=== PATIENT | male | born 1975 | race Caucasian/White ===

== ENCOUNTER 2017-07-05 17:23 | Emergency (ER) | payer BC ==
[2017-07-05 21:56] LABS: APPEARANCE CLEAR (CLEAR); BILIRUBIN NEGATIVE (NEGATIVE); COLOR STRAW (YELLOW); GLUCOSE NEGATIVE (NEGATIVE); KETONE NEGATIVE (NEGATIVE); NITRITE NEGATIVE (NEGATIVE); PROTEIN NEGATIVE (NEGATIVE); SPECIFIC GRAVITY 1.005 (1.005-1.020); UROBILINOGEN NORMAL (NORMAL)
== END 2017-07-05 20:32 | disposition home or self-care (01) ==
LOC: D.ER 17:23
PROVIDERS: Physician Assistant Medical
DX: S39.012A Strain of muscle, fascia and tendon of lower back, initial encounter (principal); X50.0XXA Overexertion from strenuous movement or load, initial encounter; Y93.89 Activity, other specified; Y92.39 Other specified sports and athletic area as the place of occurrence of the external cause

== ENCOUNTER 2017-12-01 16:34 | Emergency (ER) | payer MEDICAID ==
[~2017-12-01] VITALS: Ht 172.7 cm; Wt 93.6 kg
[2017-12-01 16:59] VITALS: Ht 172.7 cm; Wt 93.6 kg
[2017-12-01] MEDS ORDERED: TENORMIN25 MG PO (17:02)
[2017-12-01] MEDS ORDERED: BACLOFEN10 MG PO (17:03)
[2017-12-01] MEDS ORDERED: DICLOFENAC SODI50 MG PO (17:03)
[2017-12-01] MEDS ORDERED: LISINOPRIL10 MG PO (17:03)
[2017-12-01] MEDS ORDERED: TESTOSTERON200 MG/ML IM (17:04)
[2017-12-01 17:49] LABS: BASOPHILS 0.6 % (0-2); EOSINOPHILS 5.4 % (0-7); HEMATOCRIT 47.2 % (42.0-54.0); HEMOGLOBIN 16.4 g/dL (13.5-17.5); IMMATURE GRANULOCYTES 0.5 % (0-5); LYMPHOCYTES 18.6 % (15-50); MCH 32.2 pg (26.0-34.0); MCHC 34.7 g/dL (31.0-37.0); MCV 92.7 fL (80.0-100.0); MEAN PLATELET VOLUME 11.7 fL (7.4-10.4); NEUTROPHILS 66.9 % (40-80); PLATELET COUNT 163 10x3/uL (130-400); RBC 5.09 10x6/uL (4.20-6.10); RDW 12.8 % (11.5-14.5); WBC 6.5 10x3/uL (4.8-10.8)
[2017-12-01 18:26] LABS: APPEARANCE CLEAR (CLEAR); BILIRUBIN NEGATIVE (NEGATIVE); COLOR YELLOW (YELLOW); GLUCOSE NEGATIVE (NEGATIVE); KETONE NEGATIVE (NEGATIVE); NITRITE NEGATIVE (NEGATIVE); PROTEIN NEGATIVE (NEGATIVE); SPECIFIC GRAVITY 1.005 (1.005-1.020); UROBILINOGEN NORMAL (NORMAL)
[2017-12-01 18:29] LABS: ALBUMIN 4.2 g/dL (3.4-5.0); ANION GAP 7.8 mmol/L (8-16); BILIRUBIN - TOTAL 0.63 mg/dL (0.2-1.3); CALCIUM 8.2 mg/dL (8.5-10.1); CARBON DIOXIDE 31.2 mmol/L (21.0-32.0); CREATININE - SERUM 1.5 mg/dL (0.6-1.3)
[2017-12-01] MEDS ORDERED: TORADOL10 MG PO (20:37)
[2017-12-01] MEDS ORDERED: ROBAXIN-750750 MG PO (20:37)
[2017-12-01 21:10] VITALS: BP 136/88
[2017-12-02] MEDS ORDERED: ULTRAM50 MG PO (11:02)
[2017-12-02] MEDS ORDERED: PREDNISONE20 MG PO (11:02)
== END 2017-12-01 21:10 | disposition home or self-care (01) ==
LOC: D.ER 16:34
PROVIDERS: Family Medicine
DX: S39.012A Strain of muscle, fascia and tendon of lower back, initial encounter (principal); X50.0XXA Overexertion from strenuous movement or load, initial encounter; Y93.89 Activity, other specified; Y92.019 Unspecified place in single-family (private) house as the place of occurrence of the external cause; S16.1XXA Strain of muscle, fascia and tendon at neck level, initial encounter; S29.012A Strain of muscle and tendon of back wall of thorax, initial encounter; I10 Essential (primary) hypertension

== ENCOUNTER 2017-12-02 10:08 | Emergency (ER) | payer MEDICAID ==
[~2017-12-02] VITALS: Ht 172.7 cm; Wt 93.6 kg
[~2017-12-02 10:08] MED LIST: BACLOFEN10 MG PO; DICLOFENAC SODI50 MG PO; LISINOPRIL10 MG PO; ROBAXIN-750750 MG PO; TENORMIN25 MG PO; TESTOSTERON200 MG/ML IM; TORADOL10 MG PO
[2017-12-02 10:11] VITALS: Ht 172.7 cm; Wt 93.6 kg
[2017-12-02] MEDS ORDERED: ULTRAM50 MG PO (11:02)
[2017-12-02] MEDS ORDERED: PREDNISONE20 MG PO (11:02)
[2017-12-02 11:21] VITALS: BP 134/88
== END 2017-12-02 11:15 | disposition home or self-care (01) ==
LOC: D.ER 10:08
DX: M54.5 Low back pain (principal); M62.838 Other muscle spasm; I10 Essential (primary) hypertension; M54.6 Pain in thoracic spine

== ENCOUNTER 2018-05-29 10:17 | Emergency (ER) | payer MEDICAID ==
[~2018-05-29] VITALS: Ht 172.7 cm; Wt 81.8 kg
[~2018-05-29 10:17] MED LIST changes: +PREDNISONE20 MG PO; +ULTRAM50 MG PO
[2018-05-29 10:21] VITALS: Ht 172.7 cm; Wt 81.8 kg
[2018-05-29 10:47] LABS: BASOPHILS 0.3 % (0-2); EOSINOPHILS 0.2 % (0-7); HEMOGLOBIN 17.6 g/dL (13.5-17.5); IMMATURE GRANULOCYTES 0.2 % (0-5); LYMPHOCYTES 24.8 % (15-50); MCH 32.2 pg (26.0-34.0); MCHC 36.7 g/dL (31.0-37.0); MCV 87.8 fL (80.0-100.0); MEAN PLATELET VOLUME 10.2 fL (7.4-10.4); MONOCYTES 5.1 % (2-11); NEUTROPHILS 69.4 % (40-80); RBC 5.47 10x6/uL (4.20-6.10); RDW 13.2 % (11.5-14.5); WBC 8.8 10x3/uL (4.8-10.8)
[2018-05-29 10:50] LABS: PLATELET COUNT 288 10x3/uL (130-400)
[2018-05-29 11:08] LABS: CALCIUM 8.8 mg/dL (8.5-10.1); CARBON DIOXIDE 20.6 mmol/L (21.0-32.0); CREATININE - SERUM 1.3 mg/dL (0.6-1.3); POTASSIUM - SERUM 3.6 mmol/L (3.5-5.1); THYROID STIMULATING HORMONE 1.08 uIU/mL (0.36-3.74)
[2018-05-29 11:13] LABS: UDS - AMPHET NEGATIVE QUAL (NEGATIVE); UDS - BARB NEGATIVE QUAL (NEGATIVE); UDS - BENZO NEGATIVE QUAL (NEGATIVE); UDS - COCAINE NEGATIVE QUAL (NEGATIVE); UDS - OPIATE NEGATIVE QUAL (NEGATIVE); UDS - PCP NEGATIVE QUAL (NEGATIVE); UDS - THC NEGATIVE QUAL (NEGATIVE)
[2018-05-29 11:35] LABS: MAGNESIUM - SERUM 1.9 mg/dL (1.8-2.4)
[2018-05-29] MEDS ORDERED: LIBRIUM25 MG PO (20:11)
[2018-05-29 21:55] VITALS: BP 138/81
== END 2018-05-29 21:55 | disposition home or self-care (01) ==
LOC: D.ER 10:17
PROVIDERS: Family Medicine
DX: F10.10 Alcohol abuse, uncomplicated (principal); I10 Essential (primary) hypertension; F17.200 Nicotine dependence, unspecified, uncomplicated

== ENCOUNTER 2019-03-28 16:46 | Inpatient (IN) | payer MEDICAID ==
[~2019-03-28] VITALS: Ht 172.7 cm; Wt 82.3 kg
[~2019-03-28 16:46] MED LIST changes: +LIBRIUM25 MG PO
[2019-03-28] MEDS ORDERED: HYDROCODON-ACE1 EAC2 PO (16:53)
[2019-03-28 17:23] LABS: BASOPHILS 0.3 % (0-2); HEMOGLOBIN 15.5 g/dL (13.5-17.5); IMMATURE GRANULOCYTES 0.4 % (0-5); LYMPHOCYTES 15.2 % (15-50); MCH 31.4 pg (26.0-34.0); MCHC 33.7 g/dL (31.0-37.0); MCV 93.3 fL (80.0-100.0); MEAN PLATELET VOLUME 10.5 fL (7.4-10.4); MONOCYTES 5.8 % (2-11); NEUTROPHILS 77.3 % (40-80); PLATELET COUNT 239 10x3/uL (130-400); RBC 4.93 10x6/uL (4.20-6.10); RDW 13.8 % (11.5-14.5); WBC 7.3 10x3/uL (4.8-10.8)
[2019-03-28 17:35] LABS: CALC OSMOLALITY 272 mosm/kg (275-300); CALCIUM 8.4 mg/dL (8.5-10.1); CARBON DIOXIDE 28.2 mmol/L (21.0-32.0); CHLORIDE - SERUM 97 mmol/L (98-107); CREATININE - SERUM 3.4 mg/dL (0.6-1.3); POTASSIUM - SERUM 5.7 mmol/L (3.5-5.1); SODIUM 133 mmol/L (136-145); UREA NITROGEN 35 mg/dL (7-18); eGFR NON AFRICAN AMERICAN 21 mL/min (90-120)
[2019-03-28 17:36] LABS: INR 0.97 (0.85-1.17); PROTIME 12.4 SECONDS (11.6-15.0)
[2019-03-28 17:43] LABS: GLUCOSE 83 mg/dL (74-106)
[2019-03-28 17:51] VITALS: BP 91/43
[2019-03-28 17:52] LABS: ALBUMIN 4.4 g/dL (3.4-5.0); ALKALINE PHOSPHATASE 47 U/L (46-116); ALT (SGPT) 91 U/L (10-68); BILIRUBIN - TOTAL 0.58 mg/dL (0.2-1.3); CKMB 1.6 U/L (0.0-3.6); CREATINE KINASE 296 UL (21-232); MAGNESIUM - SERUM 2.4 mg/dL (1.8-2.4); PROTEIN - SERUM 7.5 g/dL (6.4-8.2); THYROID STIMULATING HORMONE 3.17 uIU/mL (0.36-3.74); TROPONIN-I < 0.017 ng/mL (0.000-0.060)
[2019-03-28 18:49] VITALS: BP 98/53
[2019-03-28 18:55] LABS: APPEARANCE CLEAR (CLEAR); BILIRUBIN NEGATIVE (NEGATIVE); COLOR YELLOW (YELLOW); GLUCOSE NEGATIVE (NEGATIVE); KETONE NEGATIVE (NEGATIVE); NITRITE NEGATIVE (NEGATIVE); PROTEIN NEGATIVE (NEGATIVE); UROBILINOGEN NORMAL (NORMAL)
[2019-03-28 19:01] LABS: UDS - AMPHET NEGATIVE QUAL (NEGATIVE); UDS - BARB POSITIVE QUAL (NEGATIVE); UDS - BENZO NEGATIVE QUAL (NEGATIVE); UDS - COCAINE NEGATIVE QUAL (NEGATIVE); UDS - OPIATE NEGATIVE QUAL (NEGATIVE); UDS - PCP NEGATIVE QUAL (NEGATIVE); UDS - THC NEGATIVE QUAL (NEGATIVE)
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
[2019-03-28] MEDS ORDERED: NORVASC5 MG PO (21:07)
[2019-03-28] MEDS ORDERED: LASIX20 MG PO (21:09)
[2019-03-28] MEDS ORDERED: ATIVAN1 MG PO (21:10)
[2019-03-28] MEDS ORDERED: BACLOFEN10 MG PO (21:12)
--- NOTE | 2019-03-28 23:47 | NUR ---
PT LAYING IN BED ALERT AND ORIENTED X4 AT THIS TIME. TELE-76 BP-112/72. NO S/S OF DISTRESS AT THIS TIME. PT COMPLAING OF SEVERE ANXIETY. VITALS STABLE AT THIS TIME. BED LOW CALL LIGHT WITHIN NORMAL LIMITS.
[2019-03-29 00:15] VITALS: BP 113/80
[2019-03-29 03:08] VITALS: BP 113/80; BMI 27.5
--- NOTE | 2019-03-29 04:20 | NUR ---
[facility] Psychosocial Assessment Date Completed: Name: [facility] #: : Date of Admission: Identifying Data/ Living Arrangements: Reason for Referral to Detention: Psychiatric History: Family Composition/ Origin: Family understanding of Patient's condition: Financial Resources: Support System: Hobbies: Impressions: Discharge Plan:
--- NOTE | 2019-03-29 04:21 | NUR ---
I have reviewed this patient and I concur with the Shift Assessment completed by the Licensed Practical Nurse today this shift.
[2019-03-29 04:30] VITALS: BP 123/78
[2019-03-29 05:26] LABS: BASOPHILS 0.9 % (0-2); EOSINOPHILS 2.8 % (0-7); HEMATOCRIT 41.8 % (42.0-54.0); HEMOGLOBIN 13.9 g/dL (13.5-17.5); IMMATURE GRANULOCYTES 0.2 % (0-5); LYMPHOCYTES 23.4 % (15-50); MCHC 33.3 g/dL (31.0-37.0); MCV 93.3 fL (80.0-100.0); MEAN PLATELET VOLUME 10.5 fL (7.4-10.4); MONOCYTES 8.2 % (2-11); NEUTROPHILS 64.5 % (40-80); PLATELET COUNT 220 10x3/uL (130-400); RBC 4.48 10x6/uL (4.20-6.10); RDW 13.7 % (11.5-14.5)
--- NOTE | 2019-03-29 05:54 | NUR ---
PT IN SHOWER AT THIS TIME. VITALS STABLE. NO S/S OF DISTRESS. RR EVEN AND UNLABORED. BED LOW CALL LIGHT WITHIN REACH. WILL CONTINUE TO MONITOR.
[2019-03-29 06:03] LABS: ALBUMIN 3.7 g/dL (3.4-5.0); ALKALINE PHOSPHATASE 45 U/L (46-116); ALT (SGPT) 84 U/L (10-68); BILIRUBIN - TOTAL 0.59 mg/dL (0.2-1.3); CALC OSMOLALITY 280 mosm/kg (275-300); CALCIUM 8.1 mg/dL (8.5-10.1); CARBON DIOXIDE 26.9 mmol/L (21.0-32.0); CHLORIDE - SERUM 103 mmol/L (98-107); CREATINE KINASE 274 UL (21-232); GLUCOSE 101 mg/dL (74-106); MAGNESIUM - SERUM 2.1 mg/dL (1.8-2.4); PHOSPHOROUS 1.8 mg/dL (2.5-4.9); POTASSIUM - SERUM 5.2 mmol/L (3.5-5.1); PRO BNP 33 pg/mL (0-125); PROTEIN - SERUM 6.8 g/dL (6.4-8.2); SODIUM 138 mmol/L (136-145); THYROID STIMULATING HORMONE 2.78 uIU/mL (0.36-3.74); UREA NITROGEN 27 mg/dL (7-18); eGFR NON AFRICAN AMERICAN 41 mL/min (90-120)
[2019-03-29 06:04] LABS: CREATININE - SERUM 1.9 mg/dL (0.6-1.3)
[2019-03-29 06:05] LABS: CKMB 1.6 U/L (0.0-3.6)
[2019-03-29 07:04] LABS: WBC 4.6 10x3/uL (4.8-10.8)
--- NOTE | 2019-03-29 07:21 | NUR ---
REPORT RECEIVED. WILL CONTINUE WITH POC. PT CURRENTLY LYING SEMI FOWLERS. CALL LIGHT W/I REACH. PT REQUESTING PAIN MEDS AND ANXIETY MEDS UPON ENTERING THE ROOM. PT IS AAO AND UP AD ZARA. RR EVEN AND UNLABORED ON RA. NS INFUSING @125ML/HR VIA L.AC PIV. NO S/S OF DISTRESS NOTED. PT IS ANXIOUS AND RESTLESS. WILL NOTIFY PHYSICIAN AND CTM.
--- NOTE | 2019-03-29 07:56 | NUR ---
SPOKE WITH MIRNA SANDOVAL ABOUT PATIENTS ANXIETY. TELEPHONE ORDERED 1MG ATIVAN Q8HPRN. WILL PLACE ORDER. WILL CTM.
[2019-03-29 09:36] VITALS: BP 148/94
--- NOTE | 2019-03-29 10:17 | NUR ---
NOTIFIED MIRNA SANDOVAL AND ELIAS SANDOVAL THAT PT IS REQUESTING PAIN MEDICATION FOR CHRONIC BACK PAIN. WAS TOLD THAT IT WOULD BE LOOKED INTO. WILL CTM.
--- NOTE | 2019-03-29 10:35 | NUR ---
VERBAL ORDERS PER ELIAS SANDOVAL FOR 1MG DILUADID ONE TIME DOSE NOW.
[2019-03-29] MEDS ORDERED: BUTALB-APAP-CA1 EACH PO (10:48)
[2019-03-29 11:12] VITALS: Ht 172.7 cm; Wt 82.3 kg
--- NOTE | 2019-03-29 14:39 | NUR ---
I have reviewed this patient and I concur with the Shift Assessment completed by the Licensed Practical Nurse today this shift.
[2019-03-29 14:47] VITALS: BP 141/92
--- NOTE | 2019-03-29 15:59 | NUR ---
RICKI SANDOVAL TELEPHONE ORDERED NORCO 7.5MG Q8HPRN.
[2019-03-29] MEDS ORDERED: BACLOFEN20 M1 PO (16:58)
--- NOTE | 2019-03-29 18:10 | NUR ---
PT CONTINUES COMING UP TO THE DESK EVERY 20 MINUTES TO ASK ABOUT WHEN HE CAN RECEIVE PAIN MEDICATION IN SPITE OF INSTRUCTING HIM ON THE TIME BOTH NORCO AND ATIVAN ARE DUE. PT HAS ASKED 4 DIFFERENT NURSES FOR BOTTLES OF GERM X WITH EACH DENYING HIS REQUEST. PT IS RESTLESS, CONTINUES TO PACE IN AND OUT OF ROOM, AND FORGETS WHAT HE IS TOLD WITHIN 15 TO 20 MINUTES. PT REPORTS OF HAVING ANXIETY BUT VERIFIES THAT THE ATIVAN DOES IN FACT HELP. AT ONE POINT, THE PATIENT BROKE DOWN CRYING WHILE IN THE ROOM, STATING "I HAVE RELATIONSHIP PROBLEMS." PATIENT IS DISORIENTED TO SITUATION AND IS FIXATED ON PAIN MEDICATION, ATIVAN, AND THE BACLOFEN THAT HE HAS DEMANDED I RETRIEVE HIM ATLEAST 10 DIFFERENT TIMES. WILL CTM.
--- NOTE | 2019-03-29 19:41 | NUR ---
EVENING ROUNDS COMPLETED. PT AAOX3, NO S/S OF DISTRESS. PT STATES HIS GIRLFRIEND IS "CRAZY" AND HE DOESNT WANT TO SPEAK TO HER WHENEVER SHE CALLS THE HOSPITAL. PT ALSO STATES HIS PAIN IS BETTER AT THE MOMMENT. NS INFUSING AT 125MLS/HR. WILL CPOC.
--- NOTE | 2019-03-29 22:10 | NUR ---
PT C/O "NOT GETTING HIS BACLOFEN" NOTIFIED AARON SANDOVAL. HE STATES HE DOES NOT WANT PT TO BE ON THIS MED AT THIS TIME BASED ON PT'S NEROLOGICAL STATUS. PT APPEARS TO BE MODERATELY CONFUSED AT THIS TIME.
[2019-03-30 06:43] LABS: BASOPHILS 1.3 % (0-2); EOSINOPHILS 4.8 % (0-7); HEMATOCRIT 42.5 % (42.0-54.0); HEMOGLOBIN 13.7 g/dL (13.5-17.5); IMMATURE GRANULOCYTES 0.3 % (0-5); MCH 30.7 pg (26.0-34.0); MCHC 32.2 g/dL (31.0-37.0); MEAN PLATELET VOLUME 10.9 fL (7.4-10.4); MONOCYTES 9.5 % (2-11); NEUTROPHILS 45.1 % (40-80); PLATELET COUNT 232 10x3/uL (130-400); RBC 4.46 10x6/uL (4.20-6.10); RDW 13.8 % (11.5-14.5)
[2019-03-30 07:10] LABS: ANION GAP 12.2 mmol/L (8-16); CALCIUM 8.4 mg/dL (8.5-10.1); CARBON DIOXIDE 27.5 mmol/L (21.0-32.0); POTASSIUM - SERUM 4.7 mmol/L (3.5-5.1)
[2019-03-30 07:11] LABS: CREATININE - SERUM 1.3 mg/dL (0.6-1.3); PHOSPHOROUS 2.7 mg/dL (2.5-4.9)
[2019-03-30 07:23] LABS: MCV 95.3 fL (80.0-100.0)
--- NOTE | 2019-03-30 07:29 | NUR ---
PT RESTING. RR EVEN AND UNLABORED. DENIES NEEDS OR PAIN AT THIS TIME. BED IN LOWEST POSITION. CALL LIGHT WITHIN REACH. WILL CONTINUE TO MONITOR.
[2019-03-30 08:00] VITALS: BP 139/88
--- NOTE | 2019-03-30 10:40 | EC ---
PATIENT:FABIANO CABRERA DATE OF SERVICE: 03/28/19 SEX: M MEDICAL RECORD: [id number] DATE OF : [birth year] LOCATION:D.M2 D.213 AGE OF PATIENT: 44 ADMISSION DATE: 03/28/19 REFERRING PHYSICIAN: INTERPRETING PHYSICIAN: JAKE ALFRED MD ECHOCARDIOGRAM REPORT ECHO CHARGES 4 ECHO COMPLETE Date: 03/29/19 CLINICAL DIAGNOSIS: ABN EKG, HX OF HTN/NOW HYPOTENSION ECHOCARDIOGRAPHIC MEASUREMENTS (adult normal given) AC root (d.<3.7cm) 3.7 cm LV Septum d (<1.2 cm> 1.4 cm Valve Excursion 2.5 cm LV Septum (systole) 1.6 cm Left Atria (s.<4.0cm> 3.5 cm LVPW d(<1.2cm) 1.9 cm RV (d.<2.3cm) 5.1 cm LVPW (sytole) 2.0 cm LV diastole(<5.6CM) 5.6 cm MV E-F(>70mm/sec) cm LV systole cm LVOT Diameter 1.5 cm MV exc.(>10mm) 3.7 cm Est.ejection fraction (50-75%) % DOPPLER: LVIT cm/sec A 89.0 cm/sec E 127.0 cm/sec LA cm/sec RVSP 29 mmHg LVOT 165 cm/sec AOP1/2T m/s Asc. Ao 181 cm/sec RVOT 103 cm/sec RA cm/sec PA 139 cm/sec AV Gradient Peak 13.11mmHg AV Mean 7.54 mmHg AV Area 2.6 cm MV Gradient Peak 6.81 mmHg MV Mean 3.02 mmHg MV Area cm COMMENTS: Data Governance Consultant: Aiden GAGNON Wheel Installer: 1 Dr. Alfred TAPE# PACS Pericardial Effusion N DATE OF SERVICE: ECHOCARDIOGRAM FINDINGS: 1. Left ventricular chamber size is within normal limits. Left ventricular systolic function is normal. Overall ejection fraction estimated at 60% to 65%. 2. Left atrium is within normal limits at 3.5 cm. Right atrium and right ventricle chamber sizes are mildly dilated. 3. Valvular structure have normal structure and motion. ECHOCARDIOGRAM REPORT [id number] FABIANO CABRERA 4. Doppler interrogation reveals no significant valvular insufficiency or stenosis and pulmonary systolic pressure is normal estimated at 29 mmHg. 5. No evidence of pericardial effusion or left ventricular thrombus. TRANSINT:[id number] Voice Confirmation ID: [id number] DOCUMENT ID: [id number] JAKE ALFRED MD at 1040 CC: [id number] DICTATION DATE: 03/29/191703 SLITTER SCORER CUT OFF OPERATOR: 03/30/19 0147 ADM IN [facility] [address] [id number]
--- NOTE | 2019-03-30 11:58 | NUR ---
I have reviewed this patient and I concur with the Shift Assessment completed by the Licensed Practical Nurse today this shift.
--- NOTE | 2019-03-30 12:54 | NUR ---
I have reviewed this patient and I concur with the Shift Assessment completed by the Licensed Practical Nurse today this shift.
--- NOTE | 2019-03-30 13:38 | NUR ---
D/C INSTRUCTIONS REVIEWED WITH PT. VERBALIZED UNDERSTANDING. IV D/C WITH CATHETER TIP INTACT. PT LEFT WITH ALL BELONGINGS VIA WHEELCHAIR TO AMMUNITION SPECIALIST'S VEHICLE.
--- NOTE | 2019-03-31 12:51 | MORECARE ---
CASE MANAGEMENT DISCHARGE SUMMARY PATIENT: FABIANO CABRERA UNIT: [id number] ADM DATE: 03/28/19 AGE: 44 : [birth year] SEX: M ROOM/BED: D.2132 AUTHOR: SHARON MARKS PHYSICIAN: REFERRING PHYSICIAN: JACKIE HAND MD DATE OF SERVICE: 03/31/19 Discharge Plan Patient Name: FABIANO CABRERA Facility: [facility]:[place] : 1975 Planned Disposition: Other Type of Facility Anticipated Discharge Date: 03/30/19 Discharge Date: 03/30/2019 Expected LOS: 2 Initial Reviewer: [email or web address] Initial Review Date: 03/28/2019 Generated: 03/31/19 1:51 pm Patient Name: FABIANO CABRERA Page 60906 at 1251 All edits/amendments must be made on the electronic document DICTATION DATE: 03/31/19 1251 SET DECORATOR: WAQAR 03/31/19 1251 RPT#: [id number] DC DATE:03/30/19 STATUS: DIS IN [facility] [address] [place] [address] END OF REPORT
--- NOTE | 2019-03-31 12:59 | MORECARE ---
CASE MANAGEMENT DISCHARGE SUMMARY PATIENT: FABIANO CABRERA UNIT: [id number] ADM DATE: 03/28/19 AGE: 44 : [birth year] SEX: M ROOM/BED: D.2132 AUTHOR: SHARON MARKS PHYSICIAN: REFERRING PHYSICIAN: JACKIE HAND MD DATE OF SERVICE: 03/31/19 Discharge Plan Patient Name: FABIANO CABRERA [facility] [facility] 1975 Planned Disposition: Other Type of Facility Anticipated Discharge Date: 03/30/19 Discharge Date: 03/30/2019 Expected LOS: 2 Initial Reviewer: [email or web address] Initial Review Date: 03/28/2019 Generated: 03/31/19 1:58 pm DCPIA - Discharge Planning Initial Assessment Updated by [email or web address]: Slade Ayala on 03/31/19 12:53 pm * Is the patient Alert and Oriented? Yes * How many steps to enter\exit or inside your home? NONE * PCP DR. CALVERT IN [place], [place]. * Pharmacy NONE * Preadmission Environment Homeless * Other Environment PT PLANS TO STAY WITH FRIENDS * Facility Name [facility] PT DISCHARGED TO [facility] IN [place] * ADLs Independent * Equipment None * Other Equipment NO MEDICAL EQUIPMENT PROVIDER PREFERENCE * List name and contact numbers for known caregivers / representatives who currently or will assist patient after discharge: NONE PER PATIENT * Verbal permission to speak to the caregivers and representatives has been obtained from the patient. No * Community resources currently utilized None * Please name any agencies selected above. NONE * Additional services required to return to the preadmission environment? No * Can the patient safely return to the preadmission environment? Yes * Has this patient been hospitalized within the prior 30 days at any hospital? Yes Last DP export: 03/31/19 11:51 Patient Name: FABIANO CABRERA Page 74818 at 1259 All edits/amendments must be made on the electronic document DICTATION DATE: 03/31/19 1258 COMMUNITY ORGANIZER: WAQAR 03/31/19 1258 RPT#: [id number] DC DATE:03/30/19 STATUS: DIS IN [facility] [address] [place] [address] END OF REPORT
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
== END 2019-03-30 13:41 | disposition home or self-care (01) | DRG 683 ==
LOC: D.ER 16:46 → D.M2 18:21
PROVIDERS: Family Medicine; ADMIT Family Medicine; ATTEND Family Medicine
DX: N17.9 Acute kidney failure, unspecified (principal); E87.1 Hypo-osmolality and hyponatremia; F17.223 Nicotine dependence, chewing tobacco, with withdrawal; E87.5 Hyperkalemia; I95.9 Hypotension, unspecified; I10 Essential (primary) hypertension; R41.82 Altered mental status, unspecified; Z86.73 Personal history of transient ischemic attack (TIA), and cerebral infarction without residual deficits

== ENCOUNTER 2020-01-15 06:44 | Emergency (ER) | payer MEDICAID ==
[~2020-01-15] VITALS: Ht 172.7 cm; Wt 88.6 kg
[~2020-01-15 06:44] MED LIST changes: +ATIVAN1 MG PO; +BACLOFEN20 M1 PO; +BUTALB-APAP-CA1 EACH PO; +HYDROCODON-ACE1 EAC2 PO; +LASIX20 MG PO; +NORVASC5 MG PO
[2020-01-15 06:48] VITALS: BP 135/85; Ht 172.7 cm; Wt 88.6 kg
[2020-01-15] MEDS ORDERED: LISINOPRIL40 MG (06:51)
[2020-01-15] MEDS ORDERED: BACTRIM DS TAB1 EAC1 PO (07:39)
[2020-01-15] MEDS ORDERED: ULTRAM50 MG PO (07:39)
== END 2020-01-15 08:27 | disposition home or self-care (01) ==
LOC: D.ER 06:44
DX: L03.011 Cellulitis of right finger (principal); Z86.73 Personal history of transient ischemic attack (TIA), and cerebral infarction without residual deficits; I10 Essential (primary) hypertension; K21.9 Gastro-esophageal reflux disease without esophagitis